=== PATIENT | male | born 1945 ===

== ENCOUNTER 2024-02-07 06:39 | Day surgery (SDC) | payer MEDICARE, BC ==
[2024-02-07] VITALS (14 sets, daily range): BP systolic 94–142; BP diastolic 46–82; PULSE 62–74; TEMP 97.2
[~2024-02-07] VITALS: Ht 167.7 cm; Wt 118.1 kg
[~2024-02-07 06:39] MED LIST: EPIPEN 2-PAK1 MG/ML IM; PREDNISONE20 MG PO
[2024-02-07] MEDS ORDERED: 1/2 NS 1,000 ML IV SCH (07:30)
[2024-02-07 08:06] LABS: HEMATOCRIT 41.4 % (42.0-52.0); HEMOGLOBIN 14.4 g/dl (13.5-18.0); MEAN CELL VOLUME 86 fl (80.0-100.0); MEAN CORPUSCULAR HEMOGLOBIN 30 pg (27-31); MEAN CORPUSCULAR HGB CONC 35 g/dl (33.0-37.0); MEAN PLATELET VOLUME 9.6 fl (7.4-10.4); PLATELET COUNT 198 K/mm3 (130-400); RED BLOOD COUNT 4.79 M/mm3 (4.20-5.60); REDCELL DISTRIBUTION WIDTH-CV 13.3 % (11.5-14.5)
[2024-02-07 08:14] LABS: INR 1.1 (0.8-3.0); PROTHROMBIN TIME 11.8 SECONDS (9.7-12.8)
[2024-02-07] MEDS ORDERED: TOPROL XL 25MG25 MG PO (08:14)
[2024-02-07 08:16] LABS: PARTIAL THROMBOPLASTIN TIME 31.5 SECONDS (26.0-37.0)
[2024-02-07] MEDS ORDERED: LIPITOR 10MG10 MG PO (08:16)
[2024-02-07] MEDS ORDERED: HYGROTON50 MG PO (08:16)
[2024-02-07] MEDS ORDERED: ALDACTONE 25MG25 M1 PO (08:16)
[2024-02-07] MEDS ORDERED: GLUCOPHAGE850 MG/TAB PO (08:17)
[2024-02-07 08:26] LABS: CALCIUM 8.8 mg/dL (8.4-10.2); CREATININE, serum 0.8 mg/dL (0.72-1.25); POTASSIUM 3.8 mEq/L (3.5-4.5)
--- NOTE | 2024-02-07 08:50 | NUR ---
Pt to procedure at this time.Report to MAAME Ogden.
[2024-02-07] MEDS ORDERED: Heparin 1,000 UNITS/ML 10 ML Multi-Dose VIAL IA SCH (09:15)
[2024-02-07] MEDS ORDERED: Nitroglycerin 100 MCG/ML (Cath Lab) 10 ML VIAL IA SCH (09:15)
[2024-02-07] MEDS ORDERED: Verapamil 2.5 MG/ML 2 ML VIAL IA SCH (09:17)
[2024-02-07] MEDS ORDERED: Heparin 1,000 UNITS/ML 10 ML Multi-Dose VIAL IV SCH (09:18)
[2024-02-07] MEDS ORDERED: Midazolam 2 MG/2 ML VIAL IV SCH (09:39)
[2024-02-07] MEDS ORDERED: fentaNYL 50 MCG/ML 2 ML VIAL IV SCH (09:39)
[2024-02-07] MEDS ORDERED: Iohexol 350 - 100 ML VIAL INCOR ONE (09:40)
--- NOTE | 2024-02-07 10:00 | NUR ---
[facility] heart cath with DR. Velasco. Please see merge document for record of interventions, vitals and medications adminsitered during procedure. Ministerio is awake and alert, pwd with reg and unlabored resps. TRband to rt wrist, cms intact, no evidence of bleeding at this time. bs report and handoff of care to Bessie ISABEL.
--- NOTE | 2024-02-07 10:02 | NUR ---
Pt returned from procedure.report from Yanet Ogden.Pt is awake and alert.Right wrist observed clean,dry,intact,and soft to touch.Pt denies pain on return.Pillow provided to rest Right arm, at bedside.Will contine to monitor.
[2024-02-07] MEDS ORDERED: IMDUR 30MG30 MG/TAB PO (10:13)
--- NOTE | 2024-02-07 14:50 | NUR ---
Discharge instructions given to pt.pt verbalizes understanding.Dressing to right radial site observed clean,dry,intact and soft to touch.Pt escorted out via wheelchair by this nurse.
== END 2024-02-07 16:18 ==
LOC: COL.CAR 06:39
PROVIDERS: Internal Medicine Cardiovascular Disease
DX: I25.110 Atherosclerotic heart disease of native coronary artery with unstable angina pectoris (principal); I10 Essential (primary) hypertension
CPT/HCPCS: J1644; J2250; J3010; Q9967